=== PATIENT | male | born 1980 | race African-American/Black ===

== ENCOUNTER 2017-05-08 16:50 | Emergency (ER) | payer SELFPAY ==
[2017-05-08] MEDS ORDERED: LIDOCAINE 2% VISCOUS SOLN 20 ML UDCUP PO ONE (20:09)
[2017-05-08] MEDS ORDERED: DEXAMETHASONE SOD PHOS INJ 10 MG/1 ML VIAL IV ONE (20:09)
[2017-05-08] MEDS ORDERED: CLINDAMYCIN 600 MG/D5W RTU 50 ML IV ONE (20:09)
[2017-05-08] MEDS ORDERED: HYDROCODONE/ACETAMINOPHEN 5-325 MG 6 TAB/DSPK PO PRN (20:10)
--- NOTE | 2017-05-08 20:20 | ER Document Report ---
ED Oral Problem - General Chief Complaint: Toothache Stated Complaint: MOUTH PAIN Time Seen by Provider: 05/08/17 19:56 Mode of Arrival: Ambulatory Information source: Patient Notes: 36-year-old male presents to ED for dental abscess for 4 days. He was seen several days ago and started on Penicillin VK which has not improved his swelling or pain. He does have a dental abscess on the left lower jaw. TRAVEL OUTSIDE OF THE U.S. IN LAST 30 DAYS: No - HPI Patient complains to provider of: Swelling of face, Swelling of jaw, Toothache Onset: Other - A Onset: Gradual Quality of pain: Pressure, Sharp, Throbbing Swollen jaw/face: Moderate Associated symptoms: Jaw pain, Toothache. 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 Family History: DM, Hypertension Patient has suicidal ideation: No Patient has homicidal ideation: No - Past Medical History Cardiac Medical History: Reports: None Pulmonary Medical History: Reports: None EENT Medical History: Reports: None Neurological Medical History: Reports: None Endocrine Medical History: Reports: None Renal/ Medical History: Reports: None Malignancy Medical History: Reports None GI Medical History: Reports: Hx Gastroesophageal Reflux Disease Musculoskeltal Medical History: Reports None Skin Medical History: Reports None Psychiatric Medical History: Reports: None Traumatic Medical History: Reports: None Infectious Medical History: Reports: None Surgical Hx: Negative Past Surgical History: Reports: None - Immunizations Immunizations up to date: Yes Hx Diphtheria, Pertussis, Tetanus Vaccination: Yes Review of Systems - Review of Systems Constitutional: No symptoms reported EENT: Mouth pain, Mouth swelling, Dental problem, Other - facial swelling Cardiovascular: No symptoms reported Respiratory: No symptoms reported Gastrointestinal: No symptoms reported Genitourinary: No symptoms reported Male Genitourinary: No symptoms reported Musculoskeletal: No symptoms reported Skin: No symptoms reported Hematologic/Lymphatic: No symptoms reported Neurological/Psychological: No symptoms reported -: Yes All other systems reviewed and negative Physical Exam - Vital signs Vitals: Temp Pulse Resp BP Pulse Ox 99.0 F 112 H 19 155/108 H 100 05/08/17 17:08 05/08/17 17:08 05/08/17 17:08 05/08/17 17:08 05/08/17 17:08 Interpretation: Normal - General General appearance: Appears well, Alert - HEENT Head: Normocephalic, Atraumatic Eyes: Normal Pupils: PERRL Ears: Normal External canal: Normal Tympanic membrane: Normal Sinus: Normal Nasal: Normal Mouth/Lips: Caries Mucous membranes: Normal Teeth diagram: 1 - Dental abscess with jaw and face swelling. Patient states he was seen 4 days ago and started on penicillin with no relief from swelling or pain. Pharynx: Other - Jaw and face swelling Neck: Normal - Respiratory Respiratory status: No respiratory distress Chest status: Nontender Breath sounds: Normal Chest palpation: Normal - Cardiovascular Rhythm: Regular Heart sounds: Normal auscultation Murmur: No - Abdominal Inspection: Normal Distension: No distension Bowel sounds: Normal Tenderness: Nontender Organomegaly: No organomegaly - Back Back: Normal, Nontender - Extremities General upper extremity: Normal inspection, Nontender, Normal color, Normal ROM , Normal temperature General lower extremity: Normal inspection, Nontender, Normal color, Normal ROM , Normal temperature, Normal weight bearing. No: Diony's sign - Neurological Neuro grossly intact: Yes Cognition: Normal Orientation: AAOx4 Norma Coma Scale Eye Opening: Spontaneous Norma Coma Scale Verbal: Oriented Norma Coma Scale Motor: Obeys Commands [place] Coma Scale Total: 15 Speech: Normal Motor strength normal: LUE, RUE, LLE, RLE Sensory: Normal - Psychological Associated symptoms: Normal affect, Normal mood - Skin Skin Temperature: Warm Skin Moisture: Dry Skin Color: Normal Course - Re-evaluation Re-evalutation: 05/08/17 21:57 Was treated with viscous lidocaine to the area then the abscess to the left lower jaw was I&D with a 18-gauge needle. Patient was given multiple glasses of warm water to rinse his mouth with an flush most of the purulent drainage out of his mouth. Patient was treated with clindamycin 600 mg IV and a [place] dispense back in the emergency room. He was then discharged home with a prescription for clindamycin 300 mg every 6 hours. Patient was instructed to complete his Pen-Vee K that he was prescribed at another place. Patient to follow-up with his dentist when return from the [place]. - Vital Signs Vital signs: Temp Pulse Resp BP Pulse Ox 99.3 F 89 18 144/97 H 98 05/08/17 21:46 05/08/17 21:46 05/08/17 21:46 05/08/17 21:46 05/08/17 21:46 Discharge - Discharge Clinical Impression: Dental abscess Condition: Stable Disposition: HOME, SELF-CARE Additional Instructions: TOOTHACHE: Your pain is due to dental decay. The tooth must be repaired in order for you to feel better. You will, therefore, be referred to a dentist. We do not have dentists on the staff at [facility]. Severe swelling or drainage around a tooth usually means a dental abscess. This also requires evaluation and treatment by the dentist, but antibiotics may be prescribed while awaiting dental treatment. You should be rechecked immediately if you develop major swelling of the face, increasing pain, a lump in the jaw or gums, headache, difficulty swallowing, or fever. ORAL NARCOTIC MEDICATION: You have been given a dispense pack of [place] for pain control. This medication is a narcotic. It's best taken with food, as nausea can result if taken on an empty stomach. Don't operate machinery or drive within six hours of taking this medication. Do not combine this medicine with alcohol, or with any medication which can cause sedation (such as cold tablets or sleeping pills) unless you get permission from the physician. Narcotics tend to cause constipation. If possible, drink plenty of fluids and eat a diet high in fiber and fruits. Please be aware that prescription narcotics also have the potential for abuse. People become addicted to these medications because of the general sense of wellbeing that they induce. This feeling along with a significant reduction in tension, anxiety, and aggression provides a stimulating seductive quality to these drugs. Once your pain is under control, we encourage you to discard your unused narcotics. PENICILLIN V K: finished you prescription You have been given a prescription for Penicillin VK. Your physician has determined that this is the best antibiotic for your condition. Pen VK can be taken with meals, however more of the antibiotic gets into the bloodstream if it's taken on an empty stomach. Penicillin usually has no side effects. However, allergy to penicillins is common. If you have had an allergic reaction to any drug of the penicillin family, you should never take any other penicillin. Notify your doctor at once if you develop hives, itching, swelling, faintness, or shortness of breath. CLINDAMYCIN: You have been given a prescription for the antibiotic clindamycin. It is often prescribed for infections in the mouth, such as dental infections or abscesses, and for skin infections due to MRSA. It's important that you take all the medication, unless instructed otherwise by your physician. Failure to complete the entire course can result in relapse of your condition. Common side effects of antibiotics include nausea, intestinal cramping, or diarrhea. Women may develop vaginal yeast infections, and babies can get yeast (thrush) in the mouth following the use of antibiotics. Contact your physician if you develop significant side effects from this medication. Allergy to this antibiotic can result in hives, wheezing, faintness, or itching. If symptoms of allergy occur, stop the medication and call the doctor. FOLLOW-UP CARE: You have been referred for follow-up care to the dentists listed below. Call the dentists office for an appointment as you were instructed or within the next two days. If you experience worsening or a significant change in your symptoms, notify the physician immediately or return to the Emergency Department at any time for re-evaluation. [facility] [address] [place], [place] Monday mornings, by appointment [facility] [address] [place] [address] [facility] [address] [facility] [place] [facility] [address] [facility] [address] [place] [facility]. [facility] [address] [place] [address]'s [email or web address] [facility] [address] [place] [address] Monday- 8:00am to 5:00 pm Will see patients from other [facility]. Charges based on income and family size and accepts Medicare, Medicaid, and Insurances Will pull molars PENDING SALE TO [facility] [id number] Hours of Operation 8:00 am - 4:30 pm weekdays The following dental offices accept Medicaid: [facility] Dr. Kirk Dr. Shell Dr. Hemphill Dr. Ramos Vinh Arora, Aleshia, and Marcial oral surgery Dr. Ferrara ([place]) Dr. Reed ([place]) [facility] Drs. Colindres and Abbe ([place]) Dr. Brantley ([place]) [facility] Dr. Gleason ([place]) Drs. Waldrop and ([place]) Medicaid Care Line Prescriptions: Clindamycin HCl [Cleocin 300 mg Capsule] 300 mg PO Q6 #28 capsule Forms: Elevated Blood Pressure, Return to Work
[2017-05-08 21:47] VITALS: BP 144/97
== END 2017-05-08 21:57 | disposition home or self-care (01) ==
LOC: ER 16:50
DX: K04.7 Periapical abscess without sinus (principal); K08.89 Other specified disorders of teeth and supporting structures; R22.0 Localized swelling, mass and lump, head; R68.84 Jaw pain
CPT/HCPCS: 99282; 96375; 96365; J3490; J1100

== ENCOUNTER 2017-05-10 09:01 | Emergency (ER) | payer SELFPAY ==
--- NOTE | 2017-05-10 09:40 | ER Document Report ---
ED Medical Screen (RME) - General Chief Complaint: Mouth Problem Stated Complaint: POSSIBLE ABSCESS Time Seen by Provider: 05/10/17 09:29 Mode of Arrival: Ambulatory Information source: Patient TRAVEL OUTSIDE OF THE U.S. IN LAST 30 DAYS: No - HPI Patient complains to provider of: Dental abscess, facial swelling Onset: Other - 4 days - Related Data Allergies/Adverse Reactions: No Known Allergies Allergy (Verified 05/10/17 09:09) Past Medical History - Social History Frequency of alcohol use: Social Drug Abuse: None Renal/ Medical History: Denies: Hx Peritoneal Dialysis GI Medical History: Reports: Hx Gastroesophageal Reflux Disease Surgical Hx: Negative - Immunizations Immunizations up to date: Yes Hx Diphtheria, Pertussis, Tetanus Vaccination: Yes Physical Exam - Vital signs Vitals: Temp Resp BP 98.3 F 16 158/97 H 05/10/17 09:08 05/10/17 09:08 05/10/17 09:08 Course - Vital Signs Vital signs: Temp Pulse Resp BP Pulse Ox 98.3 F 16 158/97 H 05/10/17 09:08 05/10/17 09:08 05/10/17 09:08
[2017-05-10] MEDS ORDERED: LIDOCAINE 2% VISCOUS SOLN 20 ML UDCUP PO ONE (10:16)
--- NOTE | 2017-05-10 10:23 | ER Document Report ---
ED Oral Problem - General Chief Complaint: Mouth Problem Stated Complaint: POSSIBLE ABSCESS Time Seen by Provider: 05/10/17 09:29 Mode of Arrival: Ambulatory Information source: Patient Notes: 36-year-old male presents to ED for continued swelling to his left jaw from his dental abscess. He was here 2 days ago and his abscess was drained. He was started on clindamycin and given an IV dose in the emergency room. Before discharge she had felt much better and the jaw had decreased a lot. He states it started swelling again yesterday. It is not as big as it was 2 days ago. But he does have a new abscess behind the one we opened 2 days ago. He states he has a appointment with a dentist later this week and will be having this tooth treated. TRAVEL OUTSIDE OF THE U.S. IN LAST 30 DAYS: No - HPI Patient complains to provider of: Jaw pain, Swelling of face, Swelling of jaw, Toothache Onset: Other - 6 days Onset: Gradual Quality of pain: Pressure, Sharp, Throbbing Severity: Severe Pain Level: 5 Swollen jaw/face: Mild Associated symptoms: Jaw pain, Toothache. 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 Family History: DM, Hypertension Patient has suicidal ideation: No Patient has homicidal ideation: No - Past Medical History Cardiac Medical History: Reports: None Pulmonary Medical History: Reports: None EENT Medical History: Reports: None Neurological Medical History: Reports: None Endocrine Medical History: Reports: None Renal/ Medical History: Reports: None GI Medical History: Reports: Hx Gastroesophageal Reflux Disease Musculoskeltal Medical History: Reports None Skin Medical History: Reports None Psychiatric Medical History: Reports: None Traumatic Medical History: Reports: None Infectious Medical History: Reports: None Surgical Hx: Negative - Immunizations Immunizations up to date: Yes Hx Diphtheria, Pertussis, Tetanus Vaccination: Yes Review of Systems - Review of Systems Constitutional: No symptoms reported EENT: No symptoms reported Cardiovascular: No symptoms reported Respiratory: No symptoms reported Gastrointestinal: No symptoms reported Genitourinary: No symptoms reported Male Genitourinary: No symptoms reported Musculoskeletal: No symptoms reported Skin: No symptoms reported Hematologic/Lymphatic: No symptoms reported Neurological/Psychological: No symptoms reported -: Yes All other systems reviewed and negative Physical Exam - Vital signs Vitals: Temp Resp BP 98.3 F 16 158/97 H 05/10/17 09:08 05/10/17 09:08 05/10/17 09:08 Interpretation: Normal - General General appearance: Appears well, Alert - HEENT Head: Normocephalic, Atraumatic Eyes: Normal Pupils: PERRL Ears: Normal External canal: Normal Tympanic membrane: Normal Sinus: Normal Nasal: Normal Mouth/Lips: Caries Mucous membranes: Normal Teeth diagram: 1 - facial swelling with an abscess posterior to the first abscess. Pharynx: Normal Neck: Normal - Respiratory Respiratory status: No respiratory distress Chest status: Nontender Breath sounds: Normal Chest palpation: Normal - Cardiovascular Rhythm: Regular Heart sounds: Normal auscultation Murmur: No - Abdominal Inspection: Normal Distension: No distension Bowel sounds: Normal Tenderness: Nontender Organomegaly: No organomegaly - Back Back: Normal, Nontender - Extremities General upper extremity: Normal inspection, Nontender, Normal color, Normal ROM , Normal temperature General lower extremity: Normal inspection, Nontender, Normal color, Normal ROM , Normal temperature, Normal weight bearing. No: Diony's sign - Neurological Neuro grossly intact: Yes Cognition: Normal Orientation: AAOx4 Norma Coma Scale Eye Opening: Spontaneous Norma Coma Scale Verbal: Oriented [place] Coma Scale Motor: Obeys Commands Norma Coma Scale Total: 15 Speech: Normal Motor strength normal: LUE, RUE, LLE, RLE Sensory: Normal - Psychological Associated symptoms: Normal affect, Normal mood - Skin Skin Temperature: Warm Skin Moisture: Dry Skin Color: Normal Course - Re-evaluation Re-evalutation: 05/10/17 12:16 Posterior abscess lacerated with a 11 blade. Patient was encouraged to gargle with warm water for several minutes. He states that the pain is much better now. He was also treated with 10 of IV Decadron and 600 mg of IV clindamycin. Patient has a dental appointment on Monday for treatment of this tooth. Patient was instructed to complete his penicillin and clindamycin prescriptions that he has at home. - Vital Signs Vital signs: Temp Pulse Resp BP Pulse Ox 98.3 F 16 158/97 H 05/10/17 09:08 05/10/17 09:08 05/10/17 09:08 Procedures - Incision and Drainage Left gum posterior to 2 days ago Time completed: Type: Simple Anesthetic type: Other mL's of anesthetic: 15 Blade size: 11 I&D procedure: Other - rised with warm water Incision Method: Incision made by scalpel Amount/type of drainage: mod Discharge - Discharge Clinical Impression: Dental abscess Condition: Stable Disposition: HOME, SELF-CARE Additional Instructions: TOOTHACHE: Your pain is due to dental decay. The tooth must be repaired in order for you to feel better. You will, therefore, be referred to a dentist. We do not have dentists on the staff at [facility]. Severe swelling or drainage around a tooth usually means a dental abscess. This also requires evaluation and treatment by the dentist, but antibiotics may be prescribed while awaiting dental treatment. You should be rechecked immediately if you develop major swelling of the face, increasing pain, a lump in the jaw or gums, headache, difficulty swallowing, or fever. Please complete your prescriptions of penicillin and clindamycin as prescribed. Given an IV dose of clindamycin and Decadron in the emergency room. PENICILLIN V K: You have been given a prescription for Penicillin VK. Your physician has determined that this is the best antibiotic for your condition. Pen VK can be taken with meals, however more of the antibiotic gets into the bloodstream if it's taken on an empty stomach. Penicillin usually has no side effects. However, allergy to penicillins is common. If you have had an allergic reaction to any drug of the penicillin family, you should never take any other penicillin. Notify your doctor at once if you develop hives, itching, swelling, faintness, or shortness of breath. CLINDAMYCIN: You have been given a prescription for the antibiotic clindamycin. It is often prescribed for infections in the mouth, such as dental infections or abscesses, and for skin infections due to MRSA. It's important that you take all the medication, unless instructed otherwise by your physician. Failure to complete the entire course can result in relapse of your condition. Common side effects of antibiotics include nausea, intestinal cramping, or diarrhea. Women may develop vaginal yeast infections, and babies can get yeast (thrush) in the mouth following the use of antibiotics. Contact your physician if you develop significant side effects from this medication. Allergy to this antibiotic can result in hives, wheezing, faintness, or itching. If symptoms of allergy occur, stop the medication and call the doctor. FOLLOW-UP CARE: You have been referred for follow-up care to the dentists listed below. Call the dentists office for an appointment as you were instructed or within the next two days. If you experience worsening or a significant change in your symptoms, notify the physician immediately or return to the Emergency Department at any time for re-evaluation. [facility] 1 [place], [place] Monday mornings, by appointment [facility] [address] [place] [address] Replaced By [facility] [place] [address] [facility] [address] [facility] [address] Doctor's [facility] [email or web address] [facility] [address] [place] [address] Monday- 8:00am to 5:00 pm Will see patients from other [facility]. Charges based on income and family size and accepts Medicare, Medicaid, and Insurances Will pull molars [facility] [id number] Hours of Operation 8:00 am - 4:30 pm weekdays The following dental offices accept Medicaid: [facility] Dr. Kirk Dr. Shell Dr. Hemphill Dr. Ramos Vinh Arora, Aleshia, and Marcial oral surgery Dr. Ferrara ([place]) Dr. Reed ([place]) [facility] Drs. Foster ([place]) Dr. Brantley ([place]) [facility] Dr. Gleason ([place]) Drs. Waldrop and ([place]) Medicaid Care Line
[2017-05-10] MEDS ORDERED: DEXAMETHASONE SOD PHOS INJ 10 MG/1 ML VIAL IV ONE (10:56)
[2017-05-10] MEDS ORDERED: CLINDAMYCIN 600 MG/D5W RTU 600 MG/50 ML RTUPB IV ONE (10:56)
[2017-05-10] MEDS ORDERED: KETOROLAC TROMETHAMINE INJ/PF 30 MG/1 ML SDV IV ONE (10:57)
[2017-05-10 12:24] VITALS: BP 124/77
== END 2017-05-10 12:24 | disposition home or self-care (01) ==
LOC: ER 09:01
PROC: 0W933ZZ Drainage of Oral Cavity and Throat, Percutaneous Approach (ICD-10-PCS; principal; 2017-05-10)
DX: K12.2 Cellulitis and abscess of mouth (principal)
CPT/HCPCS: 99282; 96375; 96365; 40800; J3490; J1885; J1100